=== PATIENT | male | born 2000 | race Caucasian/White ===

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

== ENCOUNTER 2022-09-22 13:32 | Outpatient (CLI) | payer BC, OTHER, SELFPAY ==
--- NOTE | ~2022-09-22 | MR_ITS ---
MRI of the right knee Clinical history: Pain Technique: Coronal proton density and proton density-weighted images, sagittal proton-density and T2 fat-sat images, and axial proton-density fat-saturated images were acquired. Findings: Anterior and posterior cruciate ligaments are intact. Medial collateral ligament and the la teral collateral ligament complex are intact. Popliteus tendon is intact. Medial and lateral menisci are intact, without evidence of tear. Articular cartilage is well preserved throughout the knee. There is a 2.6 x 1.7 x 3.8 cm intramedulla ry lesion of the proximal tibial diaphysis, homogeneous, with fluid intensity signal on fluid sensiti ve sequences, and relatively hyperintense to skeletal muscle on proton density images. There is a mitul y thin zone of transition, with no perilesional edema, periosteal reaction, or associated soft tissue mass. No evident internal matrix. Extensor mechanism is intact. No joint effusion or Esposito's cyst. Impression: 2.6 x 1.7 x 3.8 cm intramedullary lesion at the proximal tibial diaphysis, as detailed above. 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 Other benign cystic lesions could have a similar ap pearance. No other significant findings. Reviewed, dictated and finalized at location . Impression: 2.6 x 1.7 x 3.8 cm intramedullary lesion at the proximal tibial diaphysis, as d etailed above. 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 Other b enign cystic lesions could have a similar appearance. No other significant findings.
== END 2022-09-22 13:33 ==
LOC: MICIMG 13:33
PROVIDERS: PCP Emergency Medicine; Visit Provider Emergency Medicine
DX: M25.561 Pain in right knee (principal); M89.9 Disorder of bone, unspecified
CPT/HCPCS: 73721

== ENCOUNTER 2023-05-31 12:05 | Emergency (ER) | payer BC, OTHER, SELFPAY ==
[2023-05-31] VITALS (23 sets, daily range): BP systolic 97–125; BP diastolic 45–72; PULSE 46–88; RESP 9–21; TEMP 36.5; O2SAT 98–100
--- NOTE | ~2023-05-31 | CT_ITS ---
EXAMINATION: CT cervical spine wo con DATE: 05/31/2023 16:21 INDICATION: Head and neck pain post fall due to syncopal episode TECHNIQUE: Computed tomography (CT) of the cervical spine was performed without intravenous contrast. Automated exposure control and iterative reconstruction technique were employed. The dose-length pro duct was 439.43 mGy-cm. COMPARISON: None FINDINGS: Alignment is normal. Vertebral body and disc heights are normal. There is mild facet osteoarthritis b ilaterally at C7-T1 and in the visualized upper thoracic spine. Remaining cervical facet joints are n ormal. There is minimal to mild scattered cervical uncovertebral osteoarthritis. No central canal or neural foraminal stenosis. Cervical soft tissues are unremarkable. Visualized apices of lungs are connor ar. IMPRESSION: 1. No acute osseous abnormality. Reviewed, dictated and finalized at location A. E ASSEMBLER
--- NOTE | ~2023-05-31 | CT_ITS ---
EXAMINATION: CT brain wo con DATE: 05/31/2023 16:19 INDICATION: Syncope. TECHNIQUE: Computed tomography (CT) of the head was performed without intravenous contrast. The mA wa s adjusted according to patient size. Iterative reconstruction technique was employed. The dose-lengt h product was 605.33 mGy-cm. COMPARISON: Head CT 06/11/2013 FINDINGS: There is no intracranial hemorrhage, acute infarction, or abnormal intracranial mass lesion . The ventricles are normal in size. The orbits are normal. There is mild mucosal thickening in the e thmoid sinuses. The mastoid air cells are normal. IMPRESSION: 1. Normal brain. Reviewed, dictated and finalized at location A. N RESOURCES ADVISOR IMPRESSION: 1. Normal brain.
--- NOTE | 2023-05-31 12:12 | ECG_ITS ---
Measurements Intervals Quail Rate: 57 P: 8 VT: 145 QRS: 77 QRSD: 91 T: 55 QT: 377 QTc: 368 Interpretive Statements SINUS BRADYCARDIA WITH SINUS ARRHYTHMIA BASELINE ARTIFACT- I, II, AVR BORDERLINE ECG NO PREVIOUS ECG AVAILABLE FOR COMPARISON Electronically Signed On 05-31-2023 13:03:42 CADDY/CADDIE SUPERVISOR by Jeff Ellsworth D.O.
[2023-05-31 12:31] LABS: Basophils Percent Auto 0.3 % (0.2-1.2); Eosinophils Absolute Auto 0.1 K/mm3 (0-0.3); Eosinophils Percent Auto 0.8 % (0-4.4); Hematocrit 42.3 % (42.0-52.0); Hemoglobin 14.2 g/dL (14.0-18.0); Immature Granulocyte Absolute 0.02 K/mm3 (0.00-0.031); Immature Granulocyte Percent A 0.3 % (0-0.5); Lymphocytes Percent Auto 33.2 % (18.3-44.2); Mean Corpuscular HGB Conc 33.6 g/dl (32-36); Mean Corpuscular Hemoglobin 28.4 pg (26-34); Mean Corpuscular Volume 84.6 fl (80-100); Mean Platelet Volume 9.2 fl (7.4-10.4); Monocytes Absolute Auto 0.5 K/mm3 (0.1-0.6); Monocytes Percent Auto 8.8 % (2.6-8.5); Neutrophils Absolute Auto 3.4 K/mm3 (1.3-6.7); Neutrophils Percent Auto 56.6 % (45.5-73.1); Platelet Count Result 182 k/mm3 (150-375); Red Cell Distribution Width 12.7 % (11.5-14.5)
[2023-05-31 12:42] LABS: Alanine Aminotransferase 30 U/L (6-50); Albumin Level 4.8 g/dL (3.5-5.1); Alkaline Phosphatase 57 U/L (38-126); Anion Gap 11 mmol/L (8-16); Aspartate Amino Transferase 37 U/L (17-59); Bilirubin,Total 0.9 mg/dL (0.2-1.3); Blood Urea Nitrogen 15 mg/dL (9-20); Calcium 9.5 mg/dL (8.4-10.2); Carbon Dioxide 25 mmol/L (22-30); Chloride 102 mmol/L (98-107); Estimated CRCL calculation 107 ml/min; Estimated Glomerular Filt Rate > 60; Glucose 96 mg/dL (65-110); Potassium 3.9 mmol/L (3.4-5.0); Sodium 138 mmol/L (137-145)
--- NOTE | 2023-05-31 16:10 | ED.SYNCOPE ---
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 He states he was outside in the cold air at work and started feeling some chest tightness room breathing cold air, he went in side and then started having tunnel vision and blacked out. He states he was unconscious for 1-2 minutes and suddenly returned to baseline. He did hit his head when he fell. No loss of bowel or bladder. Some bystanders at the scene do believe he had some myoclonic twitching but he had no tongue biting or incontinence. No history of seizure. He did have some diffuse body weakness after the syncopal episode but now feels completely back to baseline. No prior cardiac history. No family cardiac history. No family history of sudden cardiac . Related Data Allergies Allergy/AdvReac Type Severity Reaction Status Date / Time hydrocodone Allergy Mild RASH Verified 10/21/22 11:12 amoxicillin Allergy Unknown Verified 10/21/22 11:12 Review of Systems Review of Systems: All systems reviewed & are unremarkable except as noted in HPI and below [facility] Surgical History Surgical History (System 10/21/22 @ 11:12 by Gino Doyle) S/P orchiopexy 2010 Family History Family History (System 10/21/22 @ 11:12 by Gino Doyle) Mother Family history of allergic disorder Other Arthritis Cerebrovascular accident Diabetes mellitus High cholesterol Hypertension Lung cancer Nasopharyngeal cancer Social History Social History (System 10/21/22 @ 11:12 by Gino Doyle) Smoking status: Never smoker Alcohol intake: never Substance use: never Living arrangements: with family Occupation/Education: student Gender identity (if verbalized by the patient): Male Exam Narrative: GENERAL: Well-appearing, well-nourished, and in no acute distress. HEAD: Normocephalic, atraumatic. EYES: PERRLA and EOMI. ENT: Nares clear. Mucous membranes moist. NECK: Supple. No c-spine tenderness. CHEST: Clear to auscultation. No respiratory distress. HEART: Regular rate and rhythm. Normal peripheral pulses. ABDOMEN: Soft, nontender, nondistended. EXTREMITIES: Normal range of motion. No edema. SKIN: Warm, dry, no rash. NEURO: No focal deficits. Alert and oriented x3. PSYCH: Normal mood and affect. Course Course Emergency Course: Chart review performed. Patient here with syncopal episode at work, passed out and fell into a table. Triage vitals normal. Patient seen evaluated, nontoxic appearing. He is back to baseline within normal neurologic exam. Symptoms sound most likely vasovagal syncope. Normal head CT and C-spine CT. EKG unremarkable. Applying PERC criteria, PE very unlikely. Patient advised close follow-up with primary care doctor. Requesting to go home at this time. The results of pertinent diagnostic studies and exam findings were discussed. The patient?s provisional diagnosis and plan of care were discussed with the patient and present family. The patient and/or present family expressed understanding of the diagnosis and plan. The nurse was instructed to provide written instructions and appropriate follow-up information. The patient understands their need and responsibility to obtain additional follow-up as instructed. The risks of medications administered and prescribed were discussed with the patient and family present. Vital Signs Vital signs: Vital Signs Temperature 97.7 F 05/31/23 12:13 Pulse Rate 59 L 05/31/23 12:13 Respiratory Rate 18 05/31/23 12:13 Blood Pressure 125/45 L 05/31/23 12:13 Pulse Oximetry 100 05/31/23 12:13 Temperature 97.7 F 05/31/23 12:13 Pulse Rate 88 05/31/23 16:46 Respiratory Rate 16 05/31/23 16:46 Blood Pressure 97
== END 2023-05-31 17:05 | disposition home or self-care (01) ==
PROVIDERS: Emergency Medicine; Emergency Provider Student in an Organized Health Care Education/Training Program; PCP Emergency Medicine
DX: R55 Syncope and collapse (principal); S09.90XA Unspecified injury of head, initial encounter; W18.39XA Other fall on same level, initial encounter
CPT/HCPCS: 36415; 70450; 72125; 80053; 85025; 93005; 99284